=== PATIENT | female | born 1955 | race Caucasian/White ===

== ENCOUNTER 2019-06-21 17:04 | Emergency (ER) | payer OTHER ==
[~2019-06-21] VITALS: Ht 170.2 cm; Wt 86.2 kg
[~2019-06-21 17:04] MED LIST: BUTALBIT-ACETA1 EAC1; LEVSIN0.125 M1; Z.0.FLEXERIL10 MG; Z.0.PHENERGAN25 M1; [UNRECOGNIZED DRUG - OTHER]
[2019-06-21] MEDS ORDERED: METOPROLOL TARTRATE 50 MG TAB ONE (22:25)
[2019-06-21] MEDS ORDERED: METOPROLOL TARTRATE 50 MG TAB PO ONE (22:30)
[2019-06-21 22:44] LABS: BILIRUBIN,URINE NEGATIVE (NEGATIVE); CLARITY,URINE CLEAR (CLEAR); COLOR,URINE YELLOW (YELLOW); KETONES,URINE TRACE (NEGATIVE); LEUKOCYTE ESTERASE ,URINE NEGATIVE (NEGATIVE); NITRITE,URINE NEGATIVE (NEGATIVE); PROTEIN,URINE DIPSTICK NEGATIVE (NEGATIVE); URINE UROBILINOGEN 0.2 mg/dL (0.2 - 1)
[2019-06-21 22:57] LABS: BACTERIA,URINE FEW /HPF; EPITHELIAL CELLS,URINE FEW /LPF
[2019-06-22 00:13] VITALS: BP 157/106
--- NOTE | 2019-06-22 00:56 | Diagnostic Imaging Report ---
X-RAY THORACIC SPINE 3 VIEWS X-RAY LUMBAR SPINE 3 VIEWS HISTORY: Pain. COMPARISON: Lumbar spine CT 09/07/2010 DISCUSSION: Thoracic spine: The included intrathoracic structures are normal. Mild endplate undulations and disc osteophytes in the thoracic spine. Disc heights and vertebral body heights are preserved. Normal facet alignment. Normal kyphosis. Mild degenerative changes in the lower cervical spine. Lumbar spine: Some of the osseous structures are partially obscured by stool and bowel gas. Partially visualized left hip total arthroplasty, without evidence of hardware convocations. There are 6 non-rib bearing lumbar vertebral bodies. The alignment of the spine is within normal limits. No displaced fracture or compression deformity is identified. Disc Spaces: The disc spaces are well maintained. Facets: Hypertrophic sclerotic facet arthropathy in the lower lumbar spine, worst at L5-S1. Subchondral sclerosis at the sacroiliac joints. IMPRESSION: No acute radiographic osseous abnormality. Degenerative changes in the spine, worst at the lower lumbar spine. Degenerative changes in the pelvis. Signed by: Steven Hi DO on 06/22/2019 12:52 AM
== END 2019-06-22 00:28 | disposition home or self-care (01) ==
LOC: ER 17:04
DX: M54.6 Pain in thoracic spine (principal); S39.012A Strain of muscle, fascia and tendon of lower back, initial encounter; N30.91 Cystitis, unspecified with hematuria; I10 Essential (primary) hypertension; F41.9 Anxiety disorder, unspecified
CPT/HCPCS: 72070; 72100; 81001; 99283

== ENCOUNTER 2023-01-07 10:10 | Inpatient (IN) | payer MEDICARE, OTHER ==
[~2023-01-07] VITALS: Ht 170.2 cm; Wt 62.6 kg
[~2023-01-07 10:10] MED LIST changes: +ACETAMINOPHEN 1000 MG/100 ML 100 ML IV ONE; +ALBUTEROL0.63 MG/3 NEB; -BUTALBIT-ACETA1 EAC1; +BUTALBIT-ACETA1 EAC1 PO; +CEFAZOLIN SODIUM 2 GM ONE; +CELECOXIB 200 MG CAP ONE; +DEXAMETHASONE SOD PHOS 10 MG/1 ML VIAL ONE; +GABAPENTIN 300 MG CAP ONE; +LACTATED RINGER'S 1,000 ML ONE; +METOPROLOL SUCC50 MG PO; +ROPIVACAINE 246.25 MG, EPINEPHRINE HCL 1:1000 1ML 0.5 MG, CLONIDINE HCL 0.08 MG, KETORO... INJ ONE; +SODIUM CHLORIDE 0.9% 250ML 250 ML ONE; +SODIUM CHLORIDE 0.9% 500ML 500 ML ONE; +TRANEXAMIC ACID 20 ML ONE; +TRAZODONE HCL100 MG PO; +Vancomycin IV 1 GM VIAL ONE; +Vancomycin IV 1,000 MG ONE; +Vancomycin IV 500 MG ONE; +XANAX0.5 MG PO; -Z.0.PHENERGAN25 M1; +Z.0.PHENERGAN25 M1 PO; +ZOLOFT50 MG PO
[2023-01-07] MEDS ORDERED: DOCUSATE SODIUM 100 MG CAP PO PRN (12:30)
[2023-01-07] MEDS ORDERED: ACETAMINOPHEN 650 MG SUPP PR PRN (12:30)
[2023-01-07] MEDS ORDERED: ONDANSETRON HCL INJ 2MG/ML 2ML 2 MG/ML VIAL IV PRN (12:30)
[2023-01-07] MEDS ORDERED: ZOLPIDEM TARTRATE 5 MG TAB PO PRN (12:30)
[2023-01-07] MEDS ORDERED: DIPHENHYDRAMINE HCL INJ 50 MG/ML VIAL IV PRN (12:30)
[2023-01-07] MEDS ORDERED: HYDROCODONE/APAP 5MG-325MG TAB PO PRN (12:30)
[2023-01-07] MEDS ORDERED: ROPIVACAINE 0.5% 5 MG/ML 30 ML SDV ONE (12:58)
[2023-01-07] MEDS: FENTANYL CITRATE/PF 100MCG/2 ML INJ ONE ×2 (13:08→13:13)
[2023-01-07] MEDS ORDERED: PROPOFOL IV EMULSION 10 MG/ML 20 ML VIAL ONE (13:50)
[2023-01-07] MEDS ORDERED: POVIDONE IODINE 0.05% 0.05 % ML PO ONE (13:50)
[2023-01-07] MEDS ORDERED: ONDANSETRON HCL INJ 2MG/ML 2ML 2 MG/ML VIAL ONE (13:50)
[2023-01-07] MEDS ORDERED: SEVOFLURANE INHAL SOLN 250 ML PEN BTL ONE (13:50)
[2023-01-07] MEDS ORDERED: KETOROLAC TROMETHAMINE 30 MG/ML VIAL ONE (13:50)
[2023-01-07] MEDS ORDERED: DEXAMETHASONE SOD PHOS INJ 4 MG/ML SDV ONE (13:50)
[2023-01-07] MEDS ORDERED: EPHEDRINE SULFATE INJ 50 MG/ML VIAL ONE (13:50)
[2023-01-07] MEDS ORDERED: LIDOCAINE HCL 2% LOCAL INJ 5 ML SDV VIAL INJ ONE (13:50)
[2023-01-07] MEDS ORDERED: MIDAZOLAM HCL 2 MG/2 ML VIAL ONE (14:16)
[2023-01-07] MEDS ORDERED: FENTANYL CITRATE/PF 100MCG/2 ML INJ ONE (14:16)
[2023-01-07 14:26] VITALS: BP 125/72; PULSE 49; RESP 18; TEMP 97.1; TEMP 97.9; O2SAT 100
[2023-01-07] MEDS: SODIUM CHLORIDE 0.9% 1000ML 1,000 ML IV SCH (14:27)
[2023-01-07 15:05] VITALS: PULSE 49; RESP 16; O2SAT 99
[2023-01-07 15:10] VITALS: BP 116/69; PULSE 50; TEMP 97.9; O2SAT 100
[2023-01-07] MEDS ORDERED: ACETAMINOPHEN 1000 MG/100 ML IV PRN (17:00)
[2023-01-07] MEDS: CELECOXIB 100 MG CAP PO SCH (17:12)
[2023-01-07] MEDS: ASPIRIN 325 MG TAB PO SCH (17:12)
[2023-01-07 20:00] VITALS: BP 145/73; PULSE 90; RESP 16; TEMP 97.3; O2SAT 100
[2023-01-07 21:00] VITALS: BP 145/73; PULSE 90; RESP 16; TEMP 97.3; O2SAT 100
[2023-01-07] MEDS: HYDROCODONE/APAP 7.5MG-325MG 1 EA TAB PO PRN (21:26)
[2023-01-07 21:35] VITALS: PULSE 76; RESP 16; O2SAT 99
[2023-01-08 00:37] VITALS: BP 129/71; PULSE 50; RESP 16; TEMP 97.6; O2SAT 100
[2023-01-08] MEDS: SODIUM CHLORIDE 0.9% 1000ML 1,000 ML IV SCH ×2 (01:47→08:53)
[2023-01-08 04:00] VITALS: BP 137/76; PULSE 50; RESP 17; TEMP 97.6; O2SAT 100
[2023-01-08] MEDS ORDERED: ALBUTEROL SULF 0.083% NEB SOLN 3 ML NEB NEB PRN (04:15)
[2023-01-08] MEDS: HYDROCODONE/APAP 7.5MG-325MG 1 EA TAB PO PRN ×2 (06:45→11:25)
[2023-01-08 08:22] LABS: HEMATOCRIT 33.1 % (34.2-44.1); HEMOGLOBIN 10.5 g/dL (12.0-16.0)
[2023-01-08 08:34] VITALS: BP 133/70; PULSE 53; RESP 16; TEMP 97.6; O2SAT 100
[2023-01-08] MEDS: CELECOXIB 100 MG CAP PO SCH (08:52)
[2023-01-08] MEDS: ASPIRIN 325 MG TAB PO SCH (08:52)
[2023-01-08 09:00] VITALS: BP 133/70; PULSE 61; RESP 16; TEMP 97.6; O2SAT 100
[2023-01-08] MEDS ORDERED: METOPROLOL SUCCINATE 50 MG TAB XL PO SCH (09:00)
[2023-01-08] MEDS ORDERED: ONDANSETRON HCL 4 MG ORAL DISINTEGRATING TAB PO PRN (11:45)
[2023-01-08] MEDS ORDERED: SERTRALINE HCL 50 MG TAB PO SCH (21:00)
[2023-01-09] MEDS ORDERED: PROMETHAZINE HC25 M1 PO (02:54)
== END 2023-01-08 13:44 | disposition home or self-care (01) | DRG 468 ==
LOC: OR 10:10 → PACU V 12:23 → OBSVTOIN 12:23 → MED/SURG 13:37 → INTOOBSV 01-08 08:46 → OBSVTOIN 01-08 08:46
PROVIDERS: ADMIT Specialist; ATTEND Specialist
PROC: 0SPB0JZ Removal of Synthetic Substitute from Left Hip Joint, Open Approach (ICD-10-PCS; 2023-01-07)
PROC: 0SRB04Z Replacement of Left Hip Joint with Ceramic on Polyethylene Synthetic Substitute, Open Approach (ICD-10-PCS; principal; 2023-01-07 10:26)
DX: T84.051A Periprosthetic osteolysis of internal prosthetic left hip joint, initial encounter (principal); I10 Essential (primary) hypertension; F41.9 Anxiety disorder, unspecified; J44.9 Chronic obstructive pulmonary disease, unspecified; D64.9 Anemia, unspecified; Z87.891 Personal history of nicotine dependence
CPT/HCPCS: 36415; 71046; 72170; 85014; 85018; 86850; 86900; 86920; 94799; 96361; J0171; J0690; J1100; J1885; J2001; J2250; J2405; J2795; J3370; J7030; J7040; J7050

== ENCOUNTER 2023-01-09 02:45 | Emergency (ER) | payer MEDICARE ==
[~2023-01-09] VITALS: Ht 170.2 cm; Wt 62.6 kg
[~2023-01-09 02:45] MED LIST changes: -ACETAMINOPHEN 1000 MG/100 ML 100 ML IV ONE; -CEFAZOLIN SODIUM 2 GM ONE; -CELECOXIB 200 MG CAP ONE; -DEXAMETHASONE SOD PHOS 10 MG/1 ML VIAL ONE; -GABAPENTIN 300 MG CAP ONE; -LACTATED RINGER'S 1,000 ML ONE; -ROPIVACAINE 246.25 MG, EPINEPHRINE HCL 1:1000 1ML 0.5 MG, CLONIDINE HCL 0.08 MG, KETORO... INJ ONE; -SODIUM CHLORIDE 0.9% 250ML 250 ML ONE; -SODIUM CHLORIDE 0.9% 500ML 500 ML ONE; -TRANEXAMIC ACID 20 ML ONE; -Vancomycin IV 1 GM VIAL ONE; -Vancomycin IV 1,000 MG ONE; -Vancomycin IV 500 MG ONE
[2023-01-09] MEDS ORDERED: PROMETHAZINE HC25 M1 PO (02:54)
[2023-01-09 03:13] VITALS: BP 144/77; PULSE 74; RESP 16; TEMP 97.9; O2SAT 100
== END 2023-01-09 03:13 | disposition home or self-care (01) ==
LOC: ER 02:49
DX: Z48.01 Encounter for change or removal of surgical wound dressing (principal); R11.2 Nausea with vomiting, unspecified; I10 Essential (primary) hypertension; F41.9 Anxiety disorder, unspecified
CPT/HCPCS: 99283

== ENCOUNTER 2023-06-10 08:47 | Outpatient (RCR) | payer MEDICARE ==
[~2023-06-10 08:47] MED LIST changes: +ALPRAZOLAM0.5 MG PO; +COLACE100 M1 PO; +FERROUS SULFAT325 MG PO; +MIRALAX17 GM PO; +ONDANSETRON ODT4 MG PO; +PROMETHAZINE HC25 M1 PO; +ULTRAM 50MG50 MG PO; +ZITHROMAX250 MG PO
== END 2023-06-10 08:48 | disposition home or self-care (01) ==
LOC: PT 08:47
PROVIDERS: ATTEND Physician Assistant
DX: M25.552 Pain in left hip (principal)

== ENCOUNTER 2023-06-23 09:42 | Outpatient (RCR) | payer MEDICARE | END 2023-06-24 | LOC: PT 09:42 | PROVIDERS: ATTEND Family Medicine | DX: M70.62 Trochanteric bursitis, left hip (principal); Z96.642 Presence of left artificial hip joint ==

== ENCOUNTER 2023-07-09 11:00 | Outpatient (RCR) | payer MEDICARE | END 2023-07-24 | LOC: PT 11:00 | PROVIDERS: ATTEND Physician Assistant | DX: R13.13 Dysphagia, pharyngeal phase (principal) ==

== ENCOUNTER → 2023-07-28 | Outpatient (REF) | payer MEDICARE | LOC: CT 11:31 | PROVIDERS: ATTEND Internal Medicine | DX: R91.8 Other nonspecific abnormal finding of lung field (principal) | CPT/HCPCS: 71250 ==